=== PATIENT | male | born 1985 | race American Indian/Alaskan Native ===

== ENCOUNTER 2019-10-25 20:37 | Emergency (ER) | payer SELFPAY ==
[2019-10-25] MEDS ORDERED: ONDANSETRON 4 MG/2 ML INJ IV ONE (20:54)
[2019-10-25] MEDS ORDERED: MORPHINE 4 MG/1 ML INJ IV ONE (20:54)
[2019-10-25] MEDS ORDERED: ONDANSETRON 4 MG/2 ML INJ ONE (20:56)
[2019-10-25] MEDS ORDERED: MORPHINE 4 MG/1 ML INJ ONE (20:56)
--- NOTE | 2019-10-25 20:58 | Emergency Department Report ---
ED Abdominal Pain HPI - General Chief Complaint: Abdominal Pain Stated Complaint: FLANK PAIN Time Seen by Provider: 10/25/19 20:51 Source: EMS Mode of arrival: Stretcher Limitations: No Limitations - History of Present Illness Initial Comments: Patient is a 34-year-old male with no significant past medical history. Patient presented to the ER complaining of sudden onset of right flank pain that radiated down to his groin area. Patient describes his pain as sharp, intermittent, 10 out of 10 with radiation down to the groin area. Patient denies any fever or chills. Patient stated that he is nauseated but no vomiting. Patient denied any hematemesis, hematochezia, melena or hematuria. MD Complaint: abdominal pain, flank pain -: Sudden, hour(s) Location: R flank - Related Data Allergies Allergy/AdvReac Type Severity Reaction Status Date / Time No Known Allergies Allergy Verified 10/25/19 21:26 ED Review of Systems ROS: Stated complaint: FLANK PAIN Other details as noted in HPI Comment: All other systems reviewed and negative Constitutional: denies: chills, fever Respiratory: denies: cough, shortness of breath, SOB with exertion, wheezing Cardiovascular: denies: chest pain, palpitations Gastrointestinal: abdominal pain, nausea. denies: vomiting, diarrhea, constipation, hematemesis, melena, hematochezia Musculoskeletal: back pain Neurological: denies: headache, weakness ED Past Medical Hx - Past Medical History Previous Medical History?: No - Surgical History Past Surgical History?: Yes Additional Surgical History: right shoulder - Social History Smoking Status: Current Every Day Smoker Substance Use Type: Alcohol ED Physical Exam - General Limitations: No Limitations General appearance: alert, in no apparent distress - Head Head exam: Present: atraumatic, normocephalic, normal inspection - Eye Eye exam: Present: normal appearance, PERRL - ENT ENT exam: Present: normal exam, normal orophraynx - Neck Neck exam: Present: normal inspection, full ROM. Absent: tenderness, meningismus, lymphadenopathy, thyromegaly - Respiratory Respiratory exam: Present: normal lung sounds bilaterally - Cardiovascular Cardiovascular Exam: Present: regular rate, normal rhythm, normal heart sounds - GI/Abdominal GI/Abdominal exam: Present: soft, normal bowel sounds. Absent: distended, tenderness, guarding, rebound, rigid, organomegaly, mass, bruit, pulsatile mass, hernia - Extremities Exam Extremities exam: Present: normal inspection, full ROM, normal capillary refill. Absent: pedal edema, calf tenderness - Back Exam Back exam: Present: normal inspection, full ROM. Absent: CVA tenderness (R), CVA tenderness (L) - Neurological Exam Neurological exam: Present: alert, oriented X3, CN II-XII intact, normal gait. Absent: motor sensory deficit - Psychiatric Psychiatric exam: Present: normal mood - Skin Skin exam: Present: warm, intact, normal color ED Course Vital Signs 10/25/19 20:44 Temperature 99.3 F Pulse Rate 83 Respiratory 18 Rate Blood Pressure 137/107 [right arm] O2 Sat by Pulse 99 Oximetry ED Medical Decision Making - Lab Data Result diagrams: 10/25/19 20:56 10/25/19 20:56 - Radiology Data Radiology results: report reviewed - Medical Decision Making Patient is a 34-year-old male with no significant past medical history. Patient presented to the ER complaining of sudden onset of right flank pain that radiated down to his groin area. Patient describes his pain as sharp, intermittent, 10 out of 10 with radiation down to the groin area. Patient denies any fever or chills. Patient stated that he is nauseated but no vomiting. Patient denied any hematemesis, hematochezia, melena or hematuria. Patient received morphine, Zofran and Toradol. Patient stated that pain is significantly improved. CT scan of the abdomen showed a 5 mm right ureteral vesicle stone with moderate hydronephrosis. Patient given prescription for Percocet, Zofran and Flomax and advised to follow-up with urologist in the next 2 to 3 days and to return to the ER if he develop any new symptoms. Critical care attestation.: If time is entered above; I have spent that time in minutes in the direct care of this critically ill patient, excluding procedure time. ED Disposition Clinical Impression: Right flank pain, Ureteral colic Disposition: TO HOME OR SELFCARE Is pt being admited?: No Condition: Stable Instructions: Renal Colic (ED), Kidney Stones (ED) Referrals: CHARLEY KRISHNA MD [Staff Physician] - 3-5 Days
[2019-10-25 21:08] LABS: Basophils # (Auto) 0.1 K/mm3 (0.0-0.1); Basophils % (Auto) 0.6 % (0.0-1.8); Eosinophils # (Auto) 0.2 K/mm3 (0.0-0.4); Eosinophils % (Auto) 1.7 % (0.0-4.3); Hematocrit 42.9 % (35.5-45.6); Hemoglobin 14.5 gm/dl (11.8-15.2); Lymphocytes # (Auto) 1.8 K/mm3 (1.2-5.4); Lymphocytes % (Auto) 18.7 % (13.4-35.0); Mean Corpuscular HGB Conc 34 % (32-34); Mean Corpuscular Volume 88 fl (84-94); Monocytes # (Auto) 0.8 K/mm3 (0.0-0.8); Monocytes % (Auto) 7.8 % (0.0-7.3); Platelet Count 158 K/mm3 (140-440); Red Blood Count 4.87 M/mm3 (3.65-5.03); Red Cell Distribution Width 12.9 % (13.2-15.2)
[2019-10-25 21:19] LABS: Bilirubin,Urine NEG (Negative); Blood,Urine MOD (Negative); Color,Urine Yellow (Yellow); Mucus,Urine FEW /HPF; Protein,Urine <15 mg/dL mg/dL (Negative); Urobilinogen,Urine < 2.0 mg/dL (<2.0)
[2019-10-25 21:29] LABS: Albumin 4.1 g/dL (3.9-5); BUN/Creatinine Ratio 11; Blood Urea Nitrogen 10 mg/dL (9-20); Calcium 9.2 mg/dL (8.4-10.2); Hemolysis Index 249
[2019-10-25] MEDS ORDERED: KETOROLAC 30 MG/1 ML INJ ONE (21:37)
[2019-10-25] MEDS ORDERED: KETOROLAC 30 MG/1 ML INJ IV ONE (21:38)
[2019-10-25 21:46] LABS: Alanine Aminotransferase 12 units/L (7-56)
--- NOTE | 2019-10-25 22:13 | Cat Scan Report ---
CT abdomen pelvis wo con INDICATION: Pt complains of mid-right abdominal pain with vomiting x 2 hours.. TECHNIQUE: All CT scans at this location are performed using the following dose modulation technique: Automated exposure control. CONTRAST: None. COMPARISON: None available. CT ABDOMEN: Evaluation of the parenchymal organs demonstrates moderate distention of the right renal collecting system and ureter. The remaining parenchymal organs are unremarkable. Negative for abdomin al mass, fluid or inflammation. The bowel is not dilated or thickened. CT PELVIS: The right ureter is dilated to the level of a 5 mm stone at the distal right ureterovesica l junction. Negative for pelvic mass or fluid collection. IMPRESSION: 5 mm stone distal right ureterovesical junction with moderate obstruction. Signer Name: Vito Conti MD Signed: 10/25/2019 10:08 PM Workstation Name: [id number]
[2019-10-25 23:30] VITALS: BP 128/92
== END 2019-10-25 22:44 | disposition home or self-care (01) ==
LOC: ED 20:37
DX: N36.8 Other specified disorders of urethra (principal); R10.9 Unspecified abdominal pain; F17.200 Nicotine dependence, unspecified, uncomplicated; Z79.899 Other long term (current) drug therapy
CPT/HCPCS: 36415; 74176; 80053; 81001; 85025; 87086; 96374; 96375; 99284; J1885; J2270; J2405

== ENCOUNTER 2020-04-18 12:16 | Emergency (ER) | payer BC ==
[2020-04-18 12:28] VITALS: BP 122/76
[2020-04-18 17:03] LABS: Bilirubin,Urine NEG (Negative); Blood,Urine NEG (Negative); Color,Urine Yellow (Yellow); Mucus,Urine FEW /HPF; Protein,Urine <15 mg/dL mg/dL (Negative); Urobilinogen,Urine < 2.0 mg/dL (<2.0)
[2020-04-18] MEDS ORDERED: KETOROLAC 30 MG/1 ML INJ IM ONE (17:25)
--- NOTE | 2020-04-18 17:55 | Cat Scan Report ---
CT ABDOMEN AND PELVIS WITHOUT CONTRAST INDICATION / CLINICAL INFORMATION: Right flank pain. TECHNIQUE: Axial CT images were obtained through the abdomen and pelvis without IV contrast. All CT scans at [facility] location are performed using CT dose reduction for ALARA by means of automated exposure control. COMPARISON: CT abdomen and pelvis without contrast from 10/25/2019. FINDINGS: LOWER CHEST: No significant abnormality. LIVER: No significant abnormality. GALLBLADDER: No significant abnormality. BILE DUCTS: No significant abnormality. PANCREAS: No significant abnormality. SPLEEN: No significant abnormality. ADRENALS: No significant abnormality. RIGHT KIDNEY / URETER: No significant abnormality. LEFT KIDNEY / URETER: No significant abnormality. STOMACH / SMALL BOWEL: No significant abnormality. COLON: No significant abnormality. APPENDIX: No significant abnormality. PERITONEUM: No free fluid. No free air. No fluid collection. LYMPH NODES: No significant adenopathy. AORTA / ARTERIES: No significant abnormality. IVC / VEINS: No significant abnormality. URINARY BLADDER: No significant abnormality. REPRODUCTIVE ORGANS: No significant abnormality. ADDITIONAL FINDINGS: None. SKELETAL SYSTEM: No significant abnormality. IMPRESSION: 1. No significant abnormality. Signer Name: Rajat Cuenca MD Signed: 04/18/2020 5:51 PM Workstation Name: [id number]
--- NOTE | 2020-04-18 18:29 | Emergency Department Report ---
ED Back Pain/Injury HPI - General Chief Complaint: Back Pain/Injury Stated Complaint: BACK PAIN Time Seen by Provider: 04/18/20 17:21 Source: patient Limitations: No Limitations - History of Present Illness Initial Comments: The patient was evaluated in the emergency department for symptoms described in the history of present illness. He/she was evaluated in the context of the global COVID-19 pandemic, which necessitated consideration that the patient might be at risk for infection with the virus that causes COVID-19. Institutional protocols and algorithms that pertain to the evaluation of patients at risk for COVID-19 are in a state of rapid change based on information released by regulatory bodies including the CDC and federal and state organizations. These policies and algorithms were followed during the patient's care in the emergency department. Please note that these policies, procedures and recommendations changed on a rapid basis. 34-year-old -Serbian male presents to the emergency room complaining of left flank pain x2 days. Patient states that is sharp and guzman. Patient states the pain is worse with moving and better with rest. 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 Patient denies any injury. Patient was seen here 6 months ago for right-sided flank pain and was found to have a 5.5 mm kidney stone. Patient never followed up with a urologist. Patient denies any fever chills no nausea no vomiting no hematuria no penile discharge or testicular pain. MD Complaint: back pain, back injury - Related Data Previous Rx's Medication Instructions Recorded Last Taken Type Ondansetron [Zofran Odt] 4 mg PO Q8HR PRN #14 tab.rapdis 10/25/19 Unknown Rx Tamsulosin [Flomax] 0.4 mg PO QDAY #14 cap 10/25/19 Unknown Rx oxyCODONE /ACETAMINOPHEN [Percocet 1 tab PO Q6HR PRN #14 tablet 10/25/19 Unknown Rx 5/325] Allergies Allergy/AdvReac Type Severity Reaction Status Date / Time No Known Allergies Allergy Verified 10/25/19 21:26 ED Review of Systems ROS: Stated complaint: BACK PAIN Other details as noted in HPI Comment: All other systems reviewed and negative ED Past Medical Hx - Past Medical History Previous Medical History?: Yes Hx Kidney Stones: Yes - Surgical History Past Surgical History?: Yes Additional Surgical History: right shoulder - Social History Smoking Status: Current Every Day Smoker Substance Use Type: Alcohol - Medications Home Medications: Home Medications Medication Instructions Recorded Confirmed Last Taken Type Ondansetron [Zofran Odt] 4 mg PO Q8HR PRN #14 tab.rapdis 10/25/19 Unknown Rx Tamsulosin [Flomax] 0.4 mg PO QDAY #14 cap 10/25/19 Unknown Rx oxyCODONE /ACETAMINOPHEN [Percocet 1 tab PO Q6HR PRN #14 tablet 10/25/19 Unknown Rx 5/325] ED Physical Exam - General Limitations: No Limitations General appearance: alert, in no apparent distress - Head Head exam: Present: atraumatic, normocephalic - Eye Eye exam: Present: normal appearance - ENT ENT exam: Present: mucous membranes moist - Neck Neck exam: Present: normal inspection - Back Exam Back exam: Present: normal inspection - Neurological Exam Neurological exam: Present: alert, oriented X3 - Psychiatric Psychiatric exam: Present: normal affect, normal mood - Skin Skin exam: Present: warm, dry, intact, normal color. Absent: rash ED Course Vital Signs 04/18/20 12:25 Temperature 98.0 F Pulse Rate 75 Respiratory 18 Rate Blood Pressure 122/76 O2 Sat by Pulse 97 Oximetry ED Medical Decision Making - Radiology Data Radiology results: report reviewed [facility] [address] [place] [address] Cat Scan Report Signed Patient: VA SWAN MR#: [id number] : 1985 Acct:[id number] Age/Sex: 34 / M ADM Date: 04/18/20 Loc: ED Attending Dr: Ordering Physician: NATALIYA PAIZ Date of Service: 04/18/20 Procedure(s): CT abdomen pelvis wo con Accession Number(s): [id number] cc: NATALIYA PAIZ CT ABDOMEN AND PELVIS WITHOUT CONTRAST INDICATION / CLINICAL INFORMATION: Right flank pain. TECHNIQUE: Axial CT images were obtained through the abdomen and pelvis without IV contrast. All CT scans at this location are performed using CT dose reduction for ALARA by means of automated exposure control. COMPARISON: CT abdomen and pelvis without contrast from 10/25/2019. FINDINGS: LOWER CHEST: No significant abnormality. LIVER: No significant abnormality. GALLBLADDER: No significant abnormality. BILE DUCTS: No significant abnormality. PANCREAS: No significant abnormality. SPLEEN: No significant abnormality. ADRENALS: No significant abnormality. RIGHT KIDNEY / URETER: No significant abnormality. LEFT KIDNEY / URETER: No significant abnormality. STOMACH / SMALL BOWEL: No significant abnormality. COLON: No significant abnormality. APPENDIX: No significant abnormality. PERITONEUM: No free fluid. No free air. No fluid collection. LYMPH NODES: No significant adenopathy. AORTA / ARTERIES: No significant abnormality. IVC / VEINS: No significant abnormality. URINARY BLADDER: No significant abnormality. REPRODUCTIVE ORGANS: No significant abnormality. ADDITIONAL FINDINGS: None. SKELETAL SYSTEM: No significant abnormality. IMPRESSION: 1. No significant abnormality. Signer Name: Rajat Cuenca MD Signed: 04/18/2020 5:51 PM Workstation Name: [id number] Transcribed By: THEA Dictated By: Rajat Cuenca MD Electronically Authenticated By: Rajat Cuenca MD Signed Date/Time: 04/18/201750 DD/ 47 TD/TT: - Medical Decision Making 34-year-old -Serbian male presents to the emergency room complaining of left flank pain x2 days. Patient states that is sharp and guzman. Patient states the pain is worse with moving and better with rest. 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 Patient denies any injury. Patient was seen here 6 months ago for right-sided flank pain and was found to have a 5.5 mm kidney stone. Patient never followed up with a urologist. Patient denies any fever chills no nausea no vomiting no hematuria no penile discharge or testicular pain. CT is negative for any acute abnormalities. Patient will be discharged home instructed to take [id number] ibuprofen or Tylenol for pain management. Patient is to increase his fluid intake. Critical care attestation.: If time is entered above; I have spent that time in minutes in the direct care of this critically ill patient, excluding procedure time. ED Disposition Clinical Impression: Strain of muscle, fascia and tendon of lower back, initial encounter Disposition: - TO HOME OR SELFCARE Is pt being admited?: No Does the pt Need Aspirin: No Condition: Stable Instructions: Low Back Strain (ED) Additional Instructions: CT is negative for any abnormalities. Increase your fluid intake take [id number] ibuprofen and Tylenol or naproxen. Follow-up with your primary care provider. Referrals: PRIMARY MD BELGICA [Primary Care Provider] - 3-5 Days [facility] [Provider Group] - 3-5 Days Forms: Work/School Release Form(ED)
== END 2020-04-18 18:27 | disposition home or self-care (01) ==
LOC: ED 12:16
DX: S39.012A Strain of muscle, fascia and tendon of lower back, initial encounter (principal); F17.200 Nicotine dependence, unspecified, uncomplicated; Z98.890 Other specified postprocedural states; Z87.442 Personal history of urinary calculi; Z79.899 Other long term (current) drug therapy; X58.XXXA Exposure to other specified factors, initial encounter; Y93.89 Activity, other specified; Y92.89 Other specified places as the place of occurrence of the external cause; Y99.8 Other external cause status
CPT/HCPCS: 74176; 81001; 96372; 99284; J1885